=== PATIENT | male | born 1960 | race Caucasian/White ===

== ENCOUNTER → 2016-11-27 | Outpatient (CLI) | payer BC ==
[~2016-11-27] MED LIST: ACET-703 PO; AZEL0.055 EACH NARE; IPRA17I INH; OMEP20TA PO; TAB-TAB PO; [UNRECOGNIZED DRUG - CODE] PR
[2016-11-27 12:01] LABS: HEMATOCRIT 53.4 % (39.0-51.0); MEAN CELL VOLUME 108.7 FL (80.0-100.0); MEAN CORPUSCULAR HEMOGLOBIN 37.3 PG (27.0-34.0); MEAN CORPUSCULAR HGB CONC 34.4 % (32.0-36.0); PLATELET COUNT 168 TH/MM3 (150-450); RED BLOOD COUNT 4.91 MIL/MM3 (4.50-5.90); RED CELL DISTRIBUTION WIDTH 15.8 % (11.6-17.2); REVIEW FLAG FINAL; WHITE BLOOD COUNT 7.1 TH/MM3 (4.0-11.0)
--- NOTE | 2016-11-28 22:39 | EKG ---
Date Performed: 11/27/2016 Time Performed: 11:37:41 PTAGE: 56 years EKG: Sinus rhythm WITH OCCASIONAL SUPRAVENTRICULAR PREMATURE COMPLEXES BORDERLINE ECG Compared to prior tracing no sig nificant change DOCTOR: Thong Angeles Interpretating Date/Time 11/28/2016 22:38:14
== END ==
LOC: CPRE 07:09
PROVIDERS: ATTEND Specialist
DX: Z01.812 Encounter for preprocedural laboratory examination (principal)
CPT/HCPCS: 36415; 85027; 93005

== ENCOUNTER → 2016-11-29 | Day surgery (SDC) | payer BC ==
--- NOTE | 2016-11-28 18:46 | MH ---
cc: NADINE SAUNDERS DATE OF ADMISSION: 11/29/2016 ADMITTING DIAGNOSIS: HISTORY OF PRESENT ILLNESS: The patient is a 56 year-old male with nasal obstruction and chronic sinusitis for nasal sinus surgery including septal reconstruction, turbinectomy and bilateral maxillary antrostomies. PAST MEDICAL HISTORY Unremarkable PAST SURGICAL HISTORY Unremarkable REVIEW OF SYSTEMS, FAMILY HISTORY AND SOCIAL HISTORY Unremarkable ALLERGIES: NO KNOWN DRUG ALLERGIES. MEDICATIONS: None. PHYSICAL EXAMINATION A 56 year-old male with nasal obstruction, septal deviation, severe turbinate hypertrophy, mucopurulent crusting. Oral cavity is clear. Neck is soft, supple, no masses. Lungs: Clear. Heart: Regular rate and rhythm. Abdomen: Soft and nontender. Extremities: Without clubbing, cyanosis or edema. Neurologic: Alert, oriented, nonfocal neurologic exam. IMPRESSION: Patient with significant nasal obstruction and chronic sinusitis for surgical correction. The patient instructed as to the method of surgery and possible complications, which include anesthetic complications, cardiac difficulty, pulmonary difficulty, stroke, or even . Surgical complications such as bleeding, infection, risk of transfusion, risk of injury to septal with perforation, decreased sense of smell, recurrent bleeding and crusting, synechia formation, packing requirement and transfusion requirement. The patient appeared to agree, accept and understand above-mentioned risks and benefits. In addition no guarantees or warranties regarding outcome were given. We will therefore proceed with surgery. Nadine Saunders MD [facility]/JO /6:09 PM /6:35 PM
[~2016-11-29] VITALS: Ht 170.2 cm; Wt 54.7 kg
[~2016-11-29] MED LIST changes: +*LABETALOL HCL 100 MG/20 ML VIAL PERIprocedural Use ONLY ONE; +*RESP: ALBUTEROL 2.5 MG/3 ML NEB (PRN) PERIprocedural Use ONLY NEB ONE; +ACETAMINOPHEN 1000 MG/100 ML VIAL IV ONE; +ACETAMINOPHEN/HYDROcodone 325 MG/7.5 MG TAB ONE; +EPINEPHrine HCL (1:1000) 1 MG/ML VIAL ONE; +EPINEPHrine HCL (1:1000) 30 MG/30 ML VIAL ONE; +INSULIN HUMAN REGULAR 1,000 UNITS/10 ML VIAL SQ PRN; +LACTATED RINGER'S 1000 ML IV SCH; +LIDOCAINE 1%/EPINEPHrine 1:100,000 SOLN 30 ML VIAL ONE; +METOPROLOL TARTRATE 25 MG TAB PO PRN; +MORPHINE SULFATE 4 MG/ML INJ ONE; +ONDANSETRON HCL 4 MG/2 ML VIAL IV PUSH ONE; +PROPOFOL 200 MG/20 ML AMP IV ONE; +SODIUM CHLORID 0.9% 500 ML IV SCH; -TAB-TAB PO; -[UNRECOGNIZED DRUG - CODE] PR; +fentaNYL CITRATE 250 MCG/5 ML AMP ONE
[2016-11-29 06:25] VITALS: BP 144/97; PULSE 75; RESP 16; TEMP 98.3; O2SAT 94
[2016-11-29 09:45] VITALS: BP 158/99; PULSE 70; RESP 16; TEMP 97.9; O2SAT 94
--- NOTE | 2016-11-29 09:46 | MP ---
cc: NADINE SAUNDERS DATE OF SURGERY 11/29/2016 PREOPERATIVE DIAGNOSIS Nasal obstruction, chronic sinusitis. PROCEDURE Open septal reconstruction, bilateral endoscopic maxillary antrostomy, bilateral inferior turbinate submucous resection. ANESTHESIA General anesthesia ESTIMATED BLOOD LOSS 200 cc COMPLICATIONS No complications. OPERATING SURGEON Dr. Saunders OPERATION FOLLOWS Prepped and draped in the usual fashion. 1% Xylocaine, 1:100,000 epinephrine injected into the nasal septum, inferior turbinate and middle meatus bilaterally. 1:1000 adrenaline soaked pledgets were placed and then removed. A mucoperichondrial incision was made on the left side of the nose anteriorly on the septum and a mucoperichondrial flap elevated. A significant amount of bone, cartilage and scar tissue removed from this incision to improve the nasal airway and reduce the nasal fracture. The flap was reapproximated with interrupted chromic suture. Under endoscopic visualization, the natural antrostomy was identified left side and a curved suction used to enlarge it. Similarly on the right side anterior, the natural antrostomy was identified and enlarged on the right side with curved suction under endoscopic visualization. The inferior turbinate bilaterally was noted to be hypertrophic and reduction was performed submucosally sparing mucosa with the Coblator probe on power level IV, multiple insertions made under direct endoscopic visualization bilaterally significantly reducing the inferior turbinate. Moderate bleeding was noted and bilateral Nasacort dressing was placed. The patient tolerated the procedure well. MD GUZMAN Ruiz/BIBIANA /9:30 AM /9:38 AM
== END | disposition home or self-care (01) ==
LOC: HSDC 05:37
PROVIDERS: ATTEND Specialist
DX: J32.9 Chronic sinusitis, unspecified (principal); J34.2 Deviated nasal septum; J34.3 Hypertrophy of nasal turbinates; J44.9 Chronic obstructive pulmonary disease, unspecified; J45.909 Unspecified asthma, uncomplicated
CPT/HCPCS: 00160; 30140; 30520; 31256; 94664; J0131; J0171; J2270; J2405; J3010; J7613